=== PATIENT | female | born 1985 | race Caucasian/White ===

== ENCOUNTER 2018-09-02 09:20 | Outpatient (REF) | payer BC, SELFPAY ==
--- NOTE | 2018-09-02 08:40 | PAPFT_PTH ---
PATIENT: Neris Diaz LOC: [facility]#:[id number] AGE/SX: 33/F ROOM: RE09/02/[address]: Cristel White DO : 1985 BED: DIS: 09/02/2018 SPEC #: [id number] RECD: 09/02/18 18:05 STATUS: ELFEGO RESanty #: [id number] YANE: 09/02/18 08:[address]: Cristel White DEPT: [facility] Cytology RECD BY: Melinda Saavedra Tissues: 1 - CX/ENDOCX FOR PAP SMEARS Procedures: PAP THIN PREP/[facility] Screening Comments: [id number]
== END 2018-09-02 09:40 ==
LOC: LBN 09:20
PROVIDERS: PCP Student in an Organized Health Care Education/Training Program; Visit Provider Student in an Organized Health Care Education/Training Program
DX: Z12.4 Encounter for screening for malignant neoplasm of cervix (principal)
CPT/HCPCS: 88142

== ENCOUNTER 2021-05-23 10:33 | Outpatient (REF) | payer OTHER, SELFPAY ==
--- NOTE | 2021-05-23 10:00 | PAPFT_PTH ---
PATIENT: Neris Diaz LOC: [facility]#:[id number] AGE/SX: 36/F ROOM: RE05/23/[address]: Cristel White DO : 1985 BED: DIS: 05/23/2021 SPEC #: [id number] RECD: 05/23/21 18:26 STATUS: ELFEGO RESanty #: [id number] YANE: 05/23/21 10:[address]: Cristel White DEPT: [facility] Cytology RECD BY: Melinda Saavedra Tissues: 1 - CX/ENDOCX FOR PAP SMEARS Procedures: PAP THIN PREP/[facility] Screening HPV DNA PROBE Comments: [id number]
== END 2021-05-23 10:34 | disposition home or self-care (01) ==
LOC: LBN 10:33
PROVIDERS: PCP Student in an Organized Health Care Education/Training Program; Visit Provider Student in an Organized Health Care Education/Training Program
DX: Z12.4 Encounter for screening for malignant neoplasm of cervix (principal); Z11.51 Encounter for screening for human papillomavirus (HPV)
CPT/HCPCS: 88142; 87624

== ENCOUNTER 2023-05-26 03:30 | Outpatient (CLI) | payer OTHER, SELFPAY ==
[2023-05-26 10:03] LABS: TSH (W/Ref FT4) 1.41 uIU/mL (0.36-3.74)
== END 2023-05-26 03:31 | disposition home or self-care (01) ==
LOC: LBO 03:31
PROVIDERS: PCP Student in an Organized Health Care Education/Training Program; Visit Provider Nurse Practitioner Women's Health
DX: R53.83 Other fatigue (principal)
CPT/HCPCS: 36415; 84443

== ENCOUNTER 2025-01-30 01:45 | Outpatient (CLI) | payer OTHER, SELFPAY ==
[2025-01-30 09:13] LABS: Abs Immature Grans 0.01 10^3/uL (0.0-0.06); Absolute Basophil Count 0.07 10^3/uL (0.0-0.2); Absolute Eosinophil Count 0.26 10^3/uL (0.0-0.7); Absolute Lymphocyte Count 1.63 10^3/uL (1.2-3.4); Absolute Monocyte Count 0.37 10^3/uL (0.1-0.8); Absolute Neutrophil Count 1.62 10^3/uL (1.2-6.7); Basophils % 1.8 %; Eosinophils % 6.6 %; HCT 36.7 % (36.0-46.0); HGB 12.4 g/dL (11.2-15.7); Immature Grans % 0.3 %; Lymphocytes % 41.2 %; MCH 31.6 pg (27.0-33.0); MCHC 33.8 % (32.0-36.0); MCV 94 fL (80-95); MPV 9.8 fL (8.0-11.0); Monocytes % 9.3 %; Neutrophils % 40.8 %; Platelet Count 180 10^3/uL (130-400); RBC 3.92 10^6/uL (3.93-5.22); RDW 14.2 % (11.7-14.6); RDW-SD 49.1 fL; WBC 3.96 10^3/uL (4.4-10.8)
[2025-01-30 09:14] LABS: Bilirubin Negative (Negative); Blood Negative (Negative); Clarity Clear (Clear); Glucose Negative (Negative); Ketones Negative (Negative); Leukocyte Esterase Negative (Negative); Nitrite Negative (Negative); Specific Gravity 1.015 (1.005-1.025); Urobilinogen 0.2 mg/dL (Up to 0.2)
[2025-01-30 09:45] LABS: Hemoglobin A1C 5.1 % (<5.7)
[2025-01-30 09:58] LABS: Iron 129 ug/dL (50-170)
[2025-01-30 10:14] LABS: ALT 23 U/L (14-59); AST 18 U/L (15-37); Albumin 3.7 g/dL (3.4-5.0); Alkaline Phosphatase 78 U/L (46-116); Anion Gap 4.4 mmol/L (3-11); BUN 14 mg/dL (7-18); Bilirubin, Total 0.6 mg/dL (0.2-1.0); CO2 28.6 mmol/L (21.0-32.0); CREATININE 0.8 mg/dL (0.55-1.02); Calcium 8.9 mg/dL (8.5-10.1); Calculated LDL 68 mg/dL (<100); Chloride 107 mmol/L (98-107); Cholesterol 157 mg/dL (<200); Estimated GFR 97.26 (mL/min/1.73m2); Ferritin 69 ng/mL (8-252); Glucose 89 mg/dL (74-106); HDL Cholesterol 83 mg/dL (>or=50); Potassium 3.8 mmol/L (3.5-5.1); Sodium 140 mmol/L (136-145); TSH 1.26 uIU/mL (0.36-3.74); Total Protein 7.1 g/dL (6.4-8.2); Triglyceride 33 mg/dL (<150); Vitamin D 25 Total 63 ng/mL (30-100)
[2025-01-30 10:29] LABS: FREE T4 0.98 ng/dL (0.76-1.46)
[2025-01-30 18:17] LABS: T3,Free 3.5 pg/mL (2.8-5.3)
[2025-01-30 19:43] LABS: FSH 5.4 mIU/mL (See Note); Thyroperoxidase Antibody >1300 U/mL (<=60)
[2025-01-30 19:49] LABS: LH 9.3 mIU/mL (See Note); Thyroglobulin Antibody 61 U/mL (<=60)
[2025-02-01 10:16] LABS: Antimullerian Hormone 1.6 ng/mL (0.15-7.5)
[2025-02-05 12:15] LABS: Testosterone, Free 0.77 ng/dL (<0.13-1.00); Testosterone, Total 27 ng/dL (8-60)
== END 2025-01-30 01:46 | disposition home or self-care (01) ==
PROVIDERS: PCP Student in an Organized Health Care Education/Training Program; Visit Provider Naturopath
DX: E06.3 Autoimmune thyroiditis (principal); R53.83 Other fatigue; R14.0 Abdominal distension (gaseous); N94.3 Premenstrual tension syndrome; G43.809 Other migraine, not intractable, without status migrainosus; E55.9 Vitamin D deficiency, unspecified; N94.4 Primary dysmenorrhea; D50.9 Iron deficiency anemia, unspecified; R42 Dizziness and giddiness; Z13.220 Encounter for screening for lipoid disorders; R35.0 Frequency of micturition; Z13.1 Encounter for screening for diabetes mellitus; R10.13 Epigastric pain
CPT/HCPCS: 36415; 80053; 80061; 82306; 84402; 84403; 86850; 86900; 86901; 81003; 82728; 83001; 83002; 83036; 83520; 83540; 84439; 84443; 84481; 85025; 86376; 86800